=== PATIENT | female | born 1980 | race African-American/Black ===

== ENCOUNTER 2018-01-24 09:19 | Emergency (ER) | payer OTHER ==
[~2018-01-24] VITALS: Ht 149.9 cm; Wt 86.0 kg
[2018-01-24] MEDS ORDERED: IBUPROFEN 600MG TABLET PO ONE (12:15)
[2018-01-24 12:19] VITALS: BP 121/71
== END 2018-01-24 13:38 | disposition home or self-care (01) ==
LOC: ER 09:49
DX: S90.01XA Contusion of right ankle, initial encounter (principal); F17.200 Nicotine dependence, unspecified, uncomplicated; F12.10 Cannabis abuse, uncomplicated; W18.39XA Other fall on same level, initial encounter; Y93.89 Activity, other specified; Y92.89 Other specified places as the place of occurrence of the external cause; Y99.8 Other external cause status
CPT/HCPCS: 73610; 73630; 81025; 99284

== ENCOUNTER 2019-03-04 08:01 | Emergency (ER) | payer MEDICAID, OTHER ==
[~2019-03-04] VITALS: Ht 149.9 cm; Wt 79.0 kg
[2019-03-04] MEDS ORDERED: IBUPROFEN 600MG TABLET PO ONE (08:30)
[2019-03-04 09:30] VITALS: BP 118/75
== END 2019-03-04 09:45 | disposition home or self-care (01) ==
LOC: ER 08:01
DX: S63.601A Unspecified sprain of right thumb, initial encounter (principal); F12.10 Cannabis abuse, uncomplicated; X58.XXXA Exposure to other specified factors, initial encounter; Y93.89 Activity, other specified; Y92.810 Car as the place of occurrence of the external cause
CPT/HCPCS: 73140; 81025; 99283